=== PATIENT | male | born 1950 | race Caucasian/White ===

== ENCOUNTER 2019-07-07 21:11 | Observation (INO) | payer OTHER, MEDICARE ==
[~2019-07-07] VITALS: Ht 185.4 cm; Wt 83.1 kg
[2019-07-07] MEDS ORDERED: HYDR1TAB94 PO (23:48)
[2019-07-08 00:05] LABS: BASOPHILS ABSOLUTE AUTO 0.07 K/mm3 (0.00-0.23); BASOPHILS PERCENT AUTO 1 % (0-2); EOSINOPHILS ABSOLUTE AUTO 0.15 K/mm3 (0.00-0.68); EOSINOPHILS PERCENT AUTO 2 % (0-6); Hematocrit 41.8 % (37.0-53.0); Hemoglobin 13.8 g/dL (13.5-17.5); IMMATURE GRAN ABSOLUTE AUTO 0.02 K/mm3 (0.00-0.10); IMMATURE GRAN PERCENT AUTO 0 % (0-1); LYMPHOCYTES ABSOLUTE AUTO 1.94 K/mm3 (0.84-5.20); LYMPHOCYTES PERCENT AUTO 20 % (21-46); MONOCYTES ABSOLUTE AUTO 0.71 K/mm3 (0.16-1.47); MONOCYTES PERCENT AUTO 7 % (4-13); Mean Corpuscular HGB 31.2 pg (26.0-34.0); Mean Corpuscular Volume 95 fL (80-100); Mean Platelet Volume 10.7 fL (9.1-12.4); NEUTROPHILS ABSOLUTE AUTO 6.76 K/mm3 (1.96-9.15); NEUTROPHILS PERCENT AUTO 70 % (41-73); Platelet Count 202 K/mm3 (150-400); RDW Coefficient Variation 12.6 % (11.7-14.2); RDW Standard Deviation 43.8 fL (35.1-46.3); Red Blood Cell Count 4.42 M/mm3 (4.30-5.90); White Blood Cell Count 9.65 K/mm3 (4.00-11.30)
[2019-07-08 00:29] LABS: Alanine Aminotransfer (ALT/SGP 14 U/L (12-78); Albumin, Blood 3.4 g/dL (3.4-5.0); Albumin/Globulin Ratio 0.9 (0.8-1.8); Alk Phos 72 U/L (50-136); Anion Gap 7 mmol/L (6-16); Aspartate Aminotrans (AST/SGOT 16 U/L (12-37); Bilirubin, Total 0.3 mg/dL (0.1-1.0); Blood Urea Nitrogen 16 mg/dL (8-24); Bun/Creatinine Ratio 14.8 (12.0-20.0); CO2, Blood 24 mmol/L (21-32); Calcium, Blood 8.5 mg/dL (8.5-10.1); Chloride, Blood 109 mmol/L (98-108); Creatinine, Blood 1.08 mg/dL (0.60-1.20); Globulin, Blood 3.8 g/dL (2.2-4.0); Glomerular Filtration Rate >60 (60-); Glucose, Blood 78 mg/dL (70-99); Potassium, Blood 3.8 mmol/L (3.5-5.5); Sodium, Blood 140 mmol/L (136-145); Total Protein, Blood 7.2 g/dL (6.4-8.2)
--- NOTE | 2019-07-08 03:15 | NUR ---
0226 PT ADMITTED TO ROOM 356 PER WHEELCHAIR FROM ER, DENIES PAIN. PTS WALLET LOCKED UP VIA SECURITY PERSONNEL (RECEIPT PLACED ON CHART).
--- NOTE | 2019-07-08 04:33 | NUR ---
SHIFT SUMMARY: 68 Y/O MALE RESTED COMFORTABLY ALL SHIFT, DENIES PAIN OR NAUSEA, HAPPY AND COOPERATIVE, BED LOW POSITION WITH CALL LIGHT AT SIDE.
[2019-07-08 04:52] LABS: Hematocrit 41.5 % (37.0-53.0); Hemoglobin 13.8 g/dL (13.5-17.5); Mean Corpuscular HGB 31.8 pg (26.0-34.0); Mean Corpuscular HGB Conc 33.3 g/dL (31.5-36.5); Mean Corpuscular Volume 96 fL (80-100); Mean Platelet Volume 10.8 fL (9.1-12.4); Platelet Count 192 K/mm3 (150-400); RDW Coefficient Variation 12.5 % (11.7-14.2); RDW Standard Deviation 44.5 fL (35.1-46.3); Red Blood Cell Count 4.34 M/mm3 (4.30-5.90); White Blood Cell Count 10.04 K/mm3 (4.00-11.30)
[2019-07-08 05:15] LABS: Alanine Aminotransfer (ALT/SGP 12 U/L (12-78); Albumin, Blood 3.4 g/dL (3.4-5.0); Albumin/Globulin Ratio 0.9 (0.8-1.8); Alk Phos 70 U/L (50-136); Anion Gap 7 mmol/L (6-16); Aspartate Aminotrans (AST/SGOT 10 U/L (12-37); Bilirubin, Total 0.5 mg/dL (0.1-1.0); Blood Urea Nitrogen 14 mg/dL (8-24); Bun/Creatinine Ratio 13.5 (12.0-20.0); CO2, Blood 25 mmol/L (21-32); Calcium, Blood 8.3 mg/dL (8.5-10.1); Chloride, Blood 107 mmol/L (98-108); Creatinine, Blood 1.04 mg/dL (0.60-1.20); Globulin, Blood 3.6 g/dL (2.2-4.0); Glomerular Filtration Rate >60 (60-); Glucose, Blood 133 mg/dL (70-99); Potassium, Blood 3.4 mmol/L (3.5-5.5); Sodium, Blood 139 mmol/L (136-145)
--- NOTE | 2019-07-08 11:31 | NUR ---
Patient is lying in bed and alert with spouse, Dayana, bedside. 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 Patient talked about his connection with God as a personal thing but admits that God's presence with him in [place] is the the only thing that brought him through. Patient is worried about the C.T. scan that the [facility] did and feels like he just got good news about his bladder cancer and now he gets hit again. I listen empathically, highlighted that the same "higher power that got him through in combat is the same higher power that has him now and I provided prayer. Patient responded well and showed signs of reduced stress. I will continue to be available to patient and family.
[2019-07-08] MEDS ORDERED: Florastor250 MG PO (17:19)
[2019-07-08] MEDS ORDERED: AMOCLA875 PO (17:20)
--- NOTE | 2019-07-08 18:19 | NUR ---
DISCHARGE DISCHARGE INSTRUCTIONS, FOLLOW UP APPOINTMENTS AND NEW MEDICATIONS REVIEWED WITH PT. QUESTIONS/CONCERNS ANSWERED. FIRST DOSE OF AUGMENTIN AND FLORESTER GIVEN TO PT BEFORE DISCHARGE, [facility], PT TO [facility] IN THE AM. WALLET BROUGHT FROM SECURITY, THEY REVIEWED CONTENTS WITH PT. PT ESCORTED OUT.
== END 2019-07-08 17:52 | disposition home or self-care (01) ==
LOC: ER 21:11 → MEDS 21:12
PROVIDERS: Emergency Medicine; ADMIT Internal Medicine
DX: K57.21 Diverticulitis of large intestine with perforation and abscess with bleeding (principal); K63.5 Polyp of colon; R93.5 Abnormal findings on diagnostic imaging of other abdominal regions, including retroperitoneum; I71.4 Abdominal aortic aneurysm, without rupture; F17.210 Nicotine dependence, cigarettes, uncomplicated; Z88.1 Allergy status to other antibiotic agents; Z85.51 Personal history of malignant neoplasm of bladder
CPT/HCPCS: 36415; 80053; 85025; 85027; 96372; 99285; A9270-GY; G0378; J1650

== ENCOUNTER 2023-08-29 11:19 | Inpatient (IN) | payer OTHER ==
[~2023-08-29] VITALS: Ht 188 cm; Wt 94.1 kg
[~2023-08-29 11:19] MED LIST: AMOCLA875 PO; Florastor250 MG PO; HYDR1TAB94 PO
[2023-08-29] MEDS ORDERED: OXYC5 (14:21)
[2023-08-29 14:37] LABS: BASOPHILS ABSOLUTE AUTO 0.05 K/mm3 (0.00-0.23); BASOPHILS PERCENT AUTO 1 % (0-2); EOSINOPHILS ABSOLUTE AUTO 0.07 K/mm3 (0.00-0.68); EOSINOPHILS PERCENT AUTO 1 % (0-6); Hematocrit 42.9 % (37.0-53.0); Hemoglobin 14.7 g/dL (13.5-17.5); IMMATURE GRAN ABSOLUTE AUTO 0.04 K/mm3 (0.00-0.10); IMMATURE GRAN PERCENT AUTO 0 % (0-1); LYMPHOCYTES ABSOLUTE AUTO 1.64 K/mm3 (0.84-5.20); LYMPHOCYTES PERCENT AUTO 15 % (21-46); MONOCYTES ABSOLUTE AUTO 0.62 K/mm3 (0.16-1.47); MONOCYTES PERCENT AUTO 6 % (4-13); Mean Corpuscular HGB 32.2 pg (26.0-34.0); Mean Corpuscular HGB Conc 34.3 g/dL (31.5-36.5); Mean Corpuscular Volume 94 fL (80-100); Mean Platelet Volume 10.6 fL (9.1-12.4); NEUTROPHILS ABSOLUTE AUTO 8.43 K/mm3 (1.96-9.15); NEUTROPHILS PERCENT AUTO 78 % (41-73); Platelet Count 188 K/mm3 (150-400); RDW Coefficient Variation 13.4 % (11.7-14.2); RDW Standard Deviation 46.8 fL (35.1-46.3); Red Blood Cell Count 4.56 M/mm3 (4.30-5.90); White Blood Cell Count 10.85 K/mm3 (4.00-11.30)
[2023-08-29 14:54] LABS: Albumin, Blood 3.7 g/dL (3.4-5.0); Albumin/Globulin Ratio 1.1 (0.8-1.8); Bilirubin, Total 0.6 mg/dL (0.1-1.0); Bun/Creatinine Ratio 13.3 (12.0-20.0); Calcium, Blood 8.7 mg/dL (8.5-10.1); Creatinine, Blood 1.35 mg/dL (0.60-1.20); Globulin, Blood 3.5 g/dL (2.2-4.0); Potassium, Blood 4.1 mmol/L (3.5-5.5); Total Protein, Blood 7.2 g/dL (6.4-8.2)
[2023-08-29] MEDS ORDERED: ACET500 PO (17:31)
--- NOTE | 2023-08-29 18:06 | NUR ---
ADMISSION SHIFT SUMMARY PATIENT ADMITTED TO MEDICAL FLOOR AFTER GROUND LEVEL FALL AND FRACTURING HIP. PATIENT TO HAVE SURGERY TOMORROW. DR. MARRERO CONSULTED AND ASSESSED PATIENT. PATIENT CONTINUES TO HAVE PAIN IN HIP. PATIENT MEDICATED WITH PAIN MEDICATIONS PER DEC.
[2023-08-29 19:23] VITALS: BP 126/75
[2023-08-30] VITALS (14 sets, daily range): BP systolic 89–144; BP diastolic 56–95
--- NOTE | 2023-08-30 05:05 | NUR ---
SHIFT SUMMARY 73 YR M ADMITTED ON 08/29/23 FOR FX LEFT HIP. PT IS IN A GREAT DEAL OF PAIN AND STATES HE IS UNABLE TO GET COMFORTABLE BECAUSE HIS HIP "SPASMS". HE STATES THAT ANY MOVEMENT AT ALL CAUSES EXCRUTIATING PAIN. HE IS RECEIVING PAIN MEDS PER EMAR BUT HE IS STILL VERY UNCOMFORTABLE. PLAN IS FOR SURGERY TODAY AND PT HAS BEEN NPO SINCE MIDNIGHT.
[2023-08-30 05:22] LABS: BASOPHILS ABSOLUTE AUTO 0.07 K/mm3 (0.00-0.23); BASOPHILS PERCENT AUTO 1 % (0-2); EOSINOPHILS ABSOLUTE AUTO 0.23 K/mm3 (0.00-0.68); EOSINOPHILS PERCENT AUTO 2 % (0-6); Hematocrit 41.7 % (37.0-53.0); Hemoglobin 14.4 g/dL (13.5-17.5); IMMATURE GRAN ABSOLUTE AUTO 0.03 K/mm3 (0.00-0.10); IMMATURE GRAN PERCENT AUTO 0 % (0-1); LYMPHOCYTES ABSOLUTE AUTO 1.66 K/mm3 (0.84-5.20); LYMPHOCYTES PERCENT AUTO 17 % (21-46); MONOCYTES ABSOLUTE AUTO 0.63 K/mm3 (0.16-1.47); MONOCYTES PERCENT AUTO 7 % (4-13); Mean Corpuscular HGB 32.7 pg (26.0-34.0); Mean Corpuscular HGB Conc 34.5 g/dL (31.5-36.5); Mean Corpuscular Volume 95 fL (80-100); Mean Platelet Volume 10.8 fL (9.1-12.4); NEUTROPHILS ABSOLUTE AUTO 7.12 K/mm3 (1.96-9.15); NEUTROPHILS PERCENT AUTO 73 % (41-73); Platelet Count 178 K/mm3 (150-400); RDW Coefficient Variation 13.5 % (11.7-14.2); RDW Standard Deviation 47.2 fL (35.1-46.3); White Blood Cell Count 9.74 K/mm3 (4.00-11.30)
[2023-08-30 05:39] LABS: International Normalized Ratio 0.96; Prothrombin Time Results 10.1 Sec (9.7-11.5)
[2023-08-30 06:09] LABS: Bun/Creatinine Ratio 14.1 (12.0-20.0); Calcium, Blood 8.3 mg/dL (8.5-10.1); Creatinine, Blood 1.42 mg/dL (0.60-1.20); Potassium, Blood 4.1 mmol/L (3.5-5.5)
--- NOTE | 2023-08-30 12:53 | NUR ---
ASSUMED CARE OF PT IN PRE-OP. JEWELRY CONSENT SIGNED. VITAL SIGNS STABLE. PT AWAKE AND TALKING WITH STAFF. BOUFFANT CAP ON, TAPE OVER RING.
--- NOTE | 2023-08-30 15:45 | NUR ---
PT A&OX4 AND PLEASANT. PT C/O SEVERE LEFT HIP PAIN D/T FX. LEG POSITIONED ON PILLOW WITH MILD RELIEF AND MEDICATED PER EMAR. PT WAS NPO FOR SURGERY. PT ABLE TO USE URNIAL INDEPENDENTLY. BEDREST. CALLS APPROPRIATLY. VSS. PT TAKEN DOWN FOR SURGERY AT APPROXIMENTLY 1230 AND TRANSFERING INHOUSE TO SURGICAL FLOOR. REPORT GIVEN TO RECIEVING NURSE. PT'S PHONE AND GLASSES TAKEN DOWN TO SURGICAL FLOOR AND GIVEN TO RECIEVING NURSE.
--- NOTE | 2023-08-30 15:53 | NUR ---
PATIENT RETURNS FROM SURGERY AT 1550. TRANSFERRED TO 212 THIS RN ASSUMED CARE AND COMFORT OF THIS PATIENT. PATIENT AO X 4. NUMBNESS OF LOWER EXTREMITIES. RECEIVED REPORT FROM REDDY DOLL. SOLEDAD KENDRICK HAD EPIDURAL DURING PROCEDURE. GM COMES WITH PATIENT TO ROOM TO RECEIVE AT 1700 IV. PATIENT NUMB TO MID ABDOMEN. NO SENSATION NOTED FROM PINCHING SITE. PATIENT CURRENTLY RESTING IN SUPINE POSITION. O2 SATS 96% ON 3 LITERS. LR RUNNING TO GRAVITY.
--- NOTE | 2023-08-30 19:10 | NUR ---
SHIFT SUMMARY; PATIENT WENT TO SURGERY FOR ARTHROPLASTY. TOLERATED PROCEDURE WELL. RETURNED WITH NUMBNESS FROM EPIDURAL FROM L2 AND BELOW THAT RESOLVED WITHIN AN HOUR OF RETURN TO ROOM. PATIENT HAS PLEASANT AFFECT AND IS COOPERATIVE WITH CARE. VITAL SIGNS WNL. PATIENT USES CALL LIGHT TO MAKE NEEDS KNOWN. REPORT TO KAYLENE DOLL WHO ASSUMED CARE AND COMFORT OF THIS PATIENT AT 1915.
--- NOTE | 2023-08-31 02:12 | NUR ---
AWAKE. REQUESTED AND RECEIVED PAIN MEDS. REPOSITIONED. VOICED APPRECIATION OF HIS CARE. CALL LIGHT IN REACH
--- NOTE | 2023-08-31 02:34 | NUR ---
WEANING OFF , WAS AT 2.5 L/MIN PER NC. NOW ON ROOM AIR, RESTING QUIETLY. NO NOTED ACUTE RESP DISTRESS. CALL LIGHT IN REACH. HOB ELEVATED FOR COMFORT
--- NOTE | 2023-08-31 03:04 | NUR ---
FLAT FOLDING MACHINE OPERATOR SUMMARY VSS. HAS BEEN RESTING QUIETLY WITH INTERMITTENT EPISODES OF AWAKEFULNESS. REQUESTED PAIN MEDS - SEE MAR FOR DETAILS. INCISION SITE CDI. WEANED OFF O2, NOW BACK ON ROOM AIR, RESPS EVEN. REMAINS ALERT AND ORIENTED. VOICED FEELING IN ALL 4 EXT. VOICED APPRECIATION OF HIS CARE HERE. CALL LIGHT IN REACH. WILL CONTINUE TO MONITOR
[2023-08-31 03:50] VITALS: BP 127/65
[2023-08-31 08:05] VITALS: BP 138/64
[2023-08-31 14:33] VITALS: BP 132/72
--- NOTE | 2023-08-31 17:08 | NUR ---
SHIFT SUMMARY PT AxOx4. PLEASANT AND COOPERATIVE WITH CARE. PT IS POST OP DAY 1 FROM L HIP HEMIARTHROPLASTY. FOCUSED POST OP ASSESSMENTS COMPLETED FOR THIS SHIFT. INCISION SITE APPEARS WNL. PT STARTED BOWEL CARE TODAY. PT REPORTS HIGH PAIN LEVEL THIS AM AFTER PAIN REJECT OPENER. PROVIDER NOTIFIED AND PAIN MEDS ADJUSTED. PT HAS REPORTED BETTER PAIN MANAGEMENT SINCE MED CHANGES. PHYSICAL THERAPY IN TODAY. WEIGHT BEARING TOLERATED ORDERED AND PT AMBULATED/TRANSFERRED TO CHAIR WITH 1-2 ASSIST, FWW AND GB. PT IS CURRENTLY SITTING UP IN RECLINER WITH CALL LIGHT IN REACH. DENIES ANY NEEDS AT THIS TIME. PT STATES HE IS HOPING TO GO HOME TOMORROW. PT SHOWS MOTIVATION FOR RECOVERY BY AMBULATING IN [place] THIS EVENING WITH STRONG AND STEADY GAIT.
[2023-08-31 18:49] VITALS: BP 138/72
[2023-09-01 03:54] VITALS: BP 118/80
[2023-09-01 04:57] LABS: BASOPHILS ABSOLUTE AUTO 0.05 K/mm3 (0.00-0.23); BASOPHILS PERCENT AUTO 1 % (0-2); EOSINOPHILS ABSOLUTE AUTO 0.31 K/mm3 (0.00-0.68); EOSINOPHILS PERCENT AUTO 4 % (0-6); Hemoglobin 12.4 g/dL (13.5-17.5); IMMATURE GRAN ABSOLUTE AUTO 0.02 K/mm3 (0.00-0.10); IMMATURE GRAN PERCENT AUTO 0 % (0-1); LYMPHOCYTES ABSOLUTE AUTO 1.76 K/mm3 (0.84-5.20); LYMPHOCYTES PERCENT AUTO 21 % (21-46); MONOCYTES ABSOLUTE AUTO 0.82 K/mm3 (0.16-1.47); MONOCYTES PERCENT AUTO 10 % (4-13); Mean Corpuscular HGB 32.9 pg (26.0-34.0); Mean Corpuscular HGB Conc 34.4 g/dL (31.5-36.5); Mean Corpuscular Volume 96 fL (80-100); Mean Platelet Volume 10.9 fL (9.1-12.4); NEUTROPHILS ABSOLUTE AUTO 5.29 K/mm3 (1.96-9.15); NEUTROPHILS PERCENT AUTO 64 % (41-73); Platelet Count 151 K/mm3 (150-400); RDW Coefficient Variation 13.2 % (11.7-14.2); RDW Standard Deviation 46.2 fL (35.1-46.3); Red Blood Cell Count 3.77 M/mm3 (4.30-5.90); White Blood Cell Count 8.25 K/mm3 (4.00-11.30)
[2023-09-01 05:25] LABS: Bun/Creatinine Ratio 11.4 (12.0-20.0); Calcium, Blood 8.1 mg/dL (8.5-10.1); Creatinine, Blood 1.32 mg/dL (0.60-1.20); Potassium, Blood 4.1 mmol/L (3.5-5.5)
--- NOTE | 2023-09-01 07:36 | NUR ---
SHIFT SUMMARY NOC. PT A/O X4. PRINEO DRESSING ON LEFT HIP C/D/I. PT TOLERATING PO AND VOIDING. PT ABLE TO AMBULATE AND DANGLE THIS MORNING. PT 1 PERSON SBA, GAIT BELT, AND FWW. PT MEDICATED FOR PAIN WITH SOME RELIEF WITH OXYCODONE. PT PUT ON CONTINUOUS PULSE OX D/T IV PAIN MEDS DURING DAY SHIFT. PT TITRATED TO 3 L VIA N/C AND SATS REMAINED ABOVE 90%. PT REPORTED NOT SLEEPING WELL BUT RESTED WITH CALL LIGHT IN REACH.
[2023-09-01 08:12] VITALS: BP 133/78
--- NOTE | 2023-09-01 09:57 | NUR ---
DR. GUPTA NOTIFIED THAT PT HAS HAD LOW O2 SATURATIONS IN THE MID 80S WHILE SLEEPING. PT'S O2 SATURATIONS ARE IN THE 90S WHEN AWAKE. DR. GUPTA REQUESTED THAT PT HAVE AN OUTPATIENT SLEEP OXIMETRY TEST. NOVA [address] ROLLER ENGINEER NOTIFIED.
[2023-09-01] MEDS ORDERED: OXYC5 PO (12:53)
[2023-09-01] MEDS ORDERED: MIRALAX17 GM PO (12:54)
[2023-09-01] MEDS ORDERED: SENN187 PO (12:55)
[2023-09-01] MEDS ORDERED: ASPI81CH PO (12:57)
[2023-09-01 14:45] VITALS: BP 131/64
--- NOTE | 2023-09-01 15:05 | NUR ---
DISCHARGE PT WAS PROVIDED WITH WRITTEN AND VERBAL DISCHARGE INSTRUCTIONS, PT REPORTED UNDERSTANDING. PAIN MANAGED AT TIME OF DISCHARGE. DRESSINGS PROVIDED FOR PT. PRESCRIPTION PROVIDED TO PT AND OTHER DISCHARGE MEDICATIONS FAXED TO PT'S PHARMACY. NOVA, CARE MANAGEMENT RN, ARRANGED FOR SHOWER CHAIR AND PULSE OXIMETRY EQUIPMENT TO BE DELIVERED TO PT'S HOME. WALKER WAS DELIVERED TO THE HOSPITAL AND SENT HOME WITH THE PATIENT. VSS AT TIME OF DISCHARGE AND PT ON RA. PT ASSISTED OUT IN W/C AT 1449.
== END 2023-09-01 14:51 | disposition home health service (06) | DRG 522 ==
LOC: ER 11:19 → MEDS 14:29 → SURS 14:29 → MEDS 16:59 → SURS 08-30 12:59
PROVIDERS: Internal Medicine; Orthopaedic Surgery; Student in an Organized Health Care Education/Training Program; ADMIT Family Medicine
PROC: 0SRS01A Replacement of Left Hip Joint, Femoral Surface with Metal Synthetic Substitute, Uncemented, Open Approach (ICD-10-PCS; principal; 2023-08-30 13:30)
DX: S72.012A Unspecified intracapsular fracture of left femur, initial encounter for closed fracture (principal); N17.9 Acute kidney failure, unspecified; W01.0XXA Fall on same level from slipping, tripping and stumbling without subsequent striking against object, initial encounter; Y92.481 Parking lot as the place of occurrence of the external cause; N18.2 Chronic kidney disease, stage 2 (mild); G89.29 Other chronic pain; F17.200 Nicotine dependence, unspecified, uncomplicated; I10 Essential (primary) hypertension; M54.9 Dorsalgia, unspecified; Z85.51 Personal history of malignant neoplasm of bladder; Z95.828 Presence of other vascular implants and grafts; Z71.6 Tobacco abuse counseling
CPT/HCPCS: 36415; 72170; 73502; 80048; 80053; 85025; 85610; 93005; 93010; 94760; 94762; 96374; 96375; 96376; 97110; 97116; 97161; 97166; 97535; 99285-25; A9270; C1713; C1776; J0171; J0690; J0735; J1885; J2250; J2704; J2795; J3010; J7120

== ENCOUNTER 2025-05-09 10:00 | Emergency (ER) | payer OTHER ==
[~2025-05-09] VITALS: Ht 185.4 cm; Wt 89.8 kg
[~2025-05-09 10:00] MED LIST changes: +ACET500 PO; +ASPI81CH PO; +MIRALAX17 GM PO; +OXYC5; +OXYC5 PO; +SENN187 PO
[2025-05-09 10:33] VITALS: BP 154/93
[2025-05-09] MEDS ORDERED: Methyl Salicylate/Menth/Camph 57 GM TUBE TOP ONE (10:40)
[2025-05-09] MEDS ORDERED: Ketorolac Tromethamine 15mg Vial IV ONE (12:35)
[2025-05-09] MEDS ORDERED: LIDO700A20 TOP (13:39)
[2025-05-09] MEDS ORDERED: DIAZ2 PO (13:39)
[2025-05-09] MEDS ORDERED: Robaxin750 MG PO (13:39)
== END 2025-05-09 14:05 | disposition home or self-care (01) ==
LOC: ER 10:00
DX: M51.360 Other intervertebral disc degeneration, lumbar region with discogenic back pain only (principal); M47.896 Other spondylosis, lumbar region; M43.8X6 Other specified deforming dorsopathies, lumbar region; M62.830 Muscle spasm of back; F17.210 Nicotine dependence, cigarettes, uncomplicated; Z88.8 Allergy status to other drugs, medicaments and biological substances; Z79.82 Long term (current) use of aspirin; Z79.899 Other long term (current) drug therapy
CPT/HCPCS: 72100; 96374; 99283-25; A9270; J1885